=== PATIENT | male | born 1960 | race Caucasian/White ===

== ENCOUNTER 2017-12-14 13:36 | Emergency (ER) | payer OTHER ==
[2017-12-14] MEDS ORDERED: SOD CHLORIDE 0.9% 1,000 ML IV (13:44)
[2017-12-14 14:18] LABS: ADD MAN DIFF? NO
[2017-12-14 14:20] LABS: BASOPHILS % 0.4 % (0.0-2.0); EOSINOPHILS % 0.1 % (0.0-7.0); HEMATOCRIT 40.4 % (42.0-52.0); LYMPHOCYTES # 1.2 10^3/ul (0.8-2.9); LYMPHOCYTES % 11.6 % (15.0-51.0); MEAN CORPUSCULAR HEMOGLOBIN 32.6 pg (29.0-33.0); MEAN CORPUSCULAR HGB CONC 34.7 g/dl (32.0-37.0); MEAN PLATELET VOLUME 8.3 fl (7.4-10.4); MONOCYTE # 0.6 10^3/ul (0.3-0.9); MONOCYTES % 6.1 % (0.0-11.0); NEUTROPHILS % 80.5 % (39.0-77.0); PLATELET COUNT 396 10^3/UL (140-415); RED CELL DISTRIBUTION WIDTH 12.4 % (11.5-14.5)
[2017-12-14] MEDS: SOD CHLORIDE 0.9% 1,000 ML IV (14:34)
[2017-12-14 14:39] LABS: INR 0.92; PROTIME 12.4 Sec (11.9-14.9)
[2017-12-14 14:40] LABS: PARTIAL THROMBOPLASTIN TIME 30.3 Sec (25.0-35.0)
[2017-12-14 14:41] LABS: ALANINE AMINOTRANSFERASE 19 IU/L (13-69); ALBUMIN 4.2 g/dl (3.3-4.9); ALBUMIN/GLOBULIN RATIO 0.84; ALKALINE PHOSPHATASE 88 IU/L (42-121); ANION GAP 17 (8-16); ASPARTATE AMINO TRANSFERASE 19 IU/L (15-46); BILIRUBIN,INDIRECT 0.3 mg/dl (0-1.1); BILIRUBIN,TOTAL 0.3 mg/dl (0.2-1.3); BLOOD UREA NITROGEN 7 mg/dl (7-20); CALCIUM 9.4 mg/dl (8.4-10.2); CARBON DIOXIDE 26 mmol/L (21-31); CHLORIDE 101 mmol/L (97-110); CREATININE 0.66 mg/dl (0.61-1.24); GLUCOSE 121 mg/dl (70-220); POTASSIUM 3.9 mmol/L (3.5-5.1); SODIUM 140 mmol/L (135-144); TOTAL PROTEIN 9.2 g/dl (6.1-8.1)
[2017-12-14] MEDS: morphine 4 MG/ML VIAL IV (14:51)
[2017-12-14] MEDS: ONDANSETRON 4 MG INJ IV (14:51)
[2017-12-14] MEDS: PIPER-TAZO 3.375 GM IV (PMX) 100 ML IVPB (14:52)
[2017-12-14 14:57] LABS: TROPONIN-I < 0.012 ng/ml (0.00-0.12)
[2017-12-14 15:12] LABS: LACTIC ACID 1.6 mmol/L (0.5-2.0)
[2017-12-14] MEDS: IOHEXOL 300MG/ML 150 ML BTL (15:17)
[2017-12-14] MEDS: SOD CHLORIDE 0.9% 100 ML (15:18)
[2017-12-14 17:05] LABS: ADD UMIC NO; UR ASCORBIC ACID NEGATIVE (NEGATIVE); UR BILIRUBIN (Dip) NEGATIVE (NEGATIVE); UR BLOOD (Dip) NEGATIVE (NEGATIVE); UR CLARITY CLEAR (CLEAR); UR COLOR YELLOW (YELLOW); UR GLUCOSE (Dip) NEGATIVE (NEGATIVE); UR KETONES (Dip) NEGATIVE (NEGATIVE); UR LEUKOCYTE ESTERASE (Dip) NEGATIVE Leu/ul (NEGATIVE); UR NITRITE (Dip) NEGATIVE (NEGATIVE); UR SPECIFIC GRAVITY (Dip) 1.017 (1.003-1.030); UR TOTAL PROTEIN (Dip) NEGATIVE (NEGATIVE); UR UROBILINOGEN (Dip) 2+ mg/dL (NEGATIVE)
[2017-12-14 17:15] LABS: LACTIC ACID 1.3 mmol/L (0.5-2.0)
[2017-12-14] MEDS: VANCOMYCIN 1 GM (PMX) 250 ML IVPB (17:35)
[2017-12-14 18:39] LABS: LACTIC ACID 1.7 mmol/L (0.5-2.0)
== END 2017-12-14 20:20 | disposition home or self-care (01) ==
LOC: E/R 13:36
DX: C76.0 Malignant neoplasm of head, face and neck (principal); I10 Essential (primary) hypertension; R07.9 Chest pain, unspecified
CPT/HCPCS: 70491; 71045; 80053; 81003; 83605; 84484; 85025; 85610; 85730; 87040; 87086; 93005; 96374; 96375; 99285-25

== ENCOUNTER 2017-12-15 13:13 | Emergency (ER) | payer OTHER | END 2017-12-15 19:50 | disposition home or self-care (01) | LOC: E/R 13:13 | DX: C76.0 Malignant neoplasm of head, face and neck (principal); I10 Essential (primary) hypertension | CPT/HCPCS: 99283; Z7502 ==